=== PATIENT | female | born 1950 | race Caucasian/White ===

== ENCOUNTER → 2016-05-07 | Outpatient (CLI) | payer MEDICARE ==
--- NOTE | 2016-05-08 07:23 | BD ---
EXAMINATION TYPE: MG DEXA axial skeleton. DATE OF EXAM: 05/07/2016 3:18 PM COMPARISON: NONE CLINICAL HISTORY: Postmenopausal female, osteoporosis Z13.820 Height: 66 Weight: 266.3 FRAX RISK QUESTIONS: Alcohol (3 or more units per day): NO Family History (Parent hip fracture): NO Glucocorticoids (More than 3mos): NO (Ex: prednisone, prednisolone, methylprednisolone, dexamethasone, and hydrocortisone). History of Fracture in Adulthood: YES Secondary Osteoporosis: 1. Type 1 Diabetes: NO 2. Hyperthyroidism: NO 3. Menopause before 45: NO 4. Malnutrition: NO 5. Chronic liver disease: NO Rheumatoid Arthritis: NO Current Tobacco Use: NO RISK FACTORS HISTORY OF: Hip Fracture (Right/Left): NO Spine Fracture: NO History of Wrist Fracture: YES When: Surgery to Spine/Hip(right/left)/Wrist (right/left): NO Family History of Osteoporosis: YES Active: NO Diet low in dairy products/other sources of calcium: NO Postmenopausal woman: AROUND AGE49 Lost more than 2 inches in height since high school: NO Frequent falls: NO Adrenal Insufficiency: NO MEDICATIONS: BLOOD PRESSURE Additional History: 18 BROKEN BONES/ LEFT LEG X2 EXAM MEASUREMENTS: Bone mineral densitometry was performed using the Via System. Bone mineral density as measured about the Lumbar spine is: ----- L1-L4(G/cm2): 1.226 T Score Values are as follows: ----- L2: 0.0 ----- L3: -0.2 ----- L4: 0.7 ----- L1-L4: 0.4 Bone mineral density BASELINE Bone mineral density about the R hip (g/cm2): 0.920 Bone mineral density about the L hip (g/cm2): 0.858 T Score values are as follows: -----R Neck: -0.9 -----L Neck: -1.3 -----R Intertrochanter: 0.5 -----L Intertrochanter: 1.2 Bone mineral density BASELINE IMPRESSION: Normal bone density in the lumbar spine, osteopenia left hip NOTE: T-SCORE=SD OF THE YOUNG ADULT MEAN.
--- NOTE | 2016-05-15 14:21 | MM ---
Reason for exam: screening (asymptomatic). Last mammogram was performed 2 years and 6 months ago. History: Family history of breast cancer in mother at age 60. Physical Findings: A clinical breast exam by your physician is recommended on an annual basis and results should be correlated with mammographic findings. MG 3D Screening Mammo W/Cad Bilateral CC and MLO view(s) were taken. Prior study comparison: November 18, 2013, mammogram, performed at [facility]. There are scattered fibroglandular densities. Finding: There are typically benign round calcifications in both breasts. There is no discrete abnormality. ASSESSMENT: Benign, BI-RAD 2 RECOMMENDATION: Routine screening mammogram of both breasts in 1 year.
== END | disposition home or self-care (01) ==
LOC: RADMAMWWP 14:20
PROVIDERS: ATTEND Family Medicine
DX: Z12.31 Encounter for screening mammogram for malignant neoplasm of breast (principal); Z13.820 Encounter for screening for osteoporosis; N39.0 Urinary tract infection, site not specified; M85.852 Other specified disorders of bone density and structure, left thigh
CPT/HCPCS: 77080; 77063; G0202

== ENCOUNTER → 2017-03-11 | Outpatient (CLI) | payer MEDICARE, OTHER ==
[2017-03-11 09:16] VITALS: BMI 42.3
== END | disposition home or self-care (01) ==
LOC: MNTWWP 07:52
PROVIDERS: ATTEND Orthopaedic Surgery
DX: M17.11 Unilateral primary osteoarthritis, right knee (principal); M25.561 Pain in right knee; M22.2X1 Patellofemoral disorders, right knee; E66.8 Other obesity; E66.01 Morbid (severe) obesity due to excess calories
CPT/HCPCS: 97802

== ENCOUNTER → 2018-03-06 | Outpatient (CLI) | payer MEDICARE, OTHER ==
[2018-03-06 10:26] LABS: Appearance,Urine Clear (Clear); Bilirubin,Urine Negative (Negative); Blood,Urine Negative (Negative); Color,Urine Light Yellow; Glucose,Urine (UA) Negative (Negative); Ketones,Urine Negative (Negative); Leukocyte Esterase,Urine Negative (Negative); Nitrite,Urine Negative (Negative); PH, Urine 6.5 (5.0-8.0); Protein,Urine Negative (Negative); Specific Gravity,Urine 1.012 (1.001-1.035); Urobilinogen,Urine <2.0 mg/dL (<2.0)
[2018-03-06 10:27] LABS: HGB 12.5 gm/dL (11.4-16.0); MCH 29.7 pg (25.0-35.0); MCHC 33.8 g/dL (31.0-37.0); MCV 87.9 fL (80.0-100.0); Mean Platelet Volume 10.2; Platelet Count 239 k/uL (150-450); RBC 4.21 m/uL (3.80-5.40); WBC 8.1 k/uL (3.8-10.6)
[2018-03-06 10:35] LABS: Partial Thromboplastin Time 25.2 sec (22.0-30.0); Prothrombin Time 9.7 sec (9.0-12.0)
[2018-03-06 10:39] LABS: Albumin 4.4 g/dL (3.5-5.0); Calcium 10.2 mg/dL (8.4-10.2); Potassium 5.1 mmol/L (3.5-5.1); Total Bilirubin 0.4 mg/dL (0.2-1.3); Total Protein 7.4 g/dL (6.3-8.2)
== END ==
LOC: LABPAT 09:30
PROVIDERS: ATTEND Orthopaedic Surgery
DX: Z01.812 Encounter for preprocedural laboratory examination (principal); Z51.81 Encounter for therapeutic drug level monitoring; Z79.01 Long term (current) use of anticoagulants
CPT/HCPCS: 36415; 80053; 81003; 85027; 85610; 85730; 87070

== ENCOUNTER 2018-03-23 08:56 | Inpatient (IN) | payer MEDICARE, OTHER ==
[~2018-03-23 08:56] MED LIST: ACETAMINOPHEN TAB 500 MG TAB PO ONE; CLINDAMYCIN 900 MG in DEXTROSE 5% IN WATER 50 ML IVPB ONE; DEXAMETHASONE SOD PHOSPHATE 10 MG/ML 1 ML VIAL IV ONE; LIDOCAINE 1% 20 ML VIAL (10MG/ML) FOR IV START INTRADERMA PRN; ONDANSETRON 4 MG/2 ML VIAL IVP ONE; ROPIVACAINE 246.25 MG, EPINEPHrine 0.5 MG, KETOROLAC 30 MG, cloNIDine HCL/PF 80 MCG, WA... MISCELLANE ONE; SCOPOLAMINE 1.5MG/72HR PATCH TRANSDERM ONE; TRANEXAMIC ACID 1,000 MG in SODIUM CHLORIDE 0.9% 50 ML IVPB ONE
[2018-03-23 09:27] VITALS: RESP 16
[2018-03-23] MEDS: LACTATED RINGERS 1,000 ML IV SCH (09:43)
[2018-03-23] MEDS ORDERED: BUPIVACAINE (PF) 0.5% 30 ML VIAL ONE (10:37)
[2018-03-23] MEDS ORDERED: LIDOCAINE 1% INJ 10MG/ML (20 ML MDV) ONE (10:37)
[2018-03-23] MEDS ORDERED: MIDAZOLAM 2 MG/2 ML VIAL ONE (10:37)
[2018-03-23] MEDS ORDERED: PROPOFOL 10 MG/ML 20 ML VIAL IV ONE (10:37)
[2018-03-23] MEDS ORDERED: ePHEDrine SULFATE/0.9% NACL/PF 50 MG/5 ML SYRINGE IV ONE (10:37)
[2018-03-23] MEDS ORDERED: SODIUM CHLORIDE 0.9% 100 ML BAG ONE (10:37)
[2018-03-23] MEDS ORDERED: TRANEXAMIC ACID 1,000 MG/10 ML VIAL ONE (10:37)
[2018-03-23] MEDS ORDERED: fentaNYL (PF) 50 MCG/ML 2 ML AMP ONE (10:37)
[2018-03-23] MEDS ORDERED: DEXTROSE 5% IN WATER 250 ML BAG IV ONE (10:37)
[2018-03-23] MEDS ORDERED: PHENYLEPHRINE-0.9% NACL SYG 1 MG/10 ML SYRINGE ONE (10:37)
[2018-03-23] MEDS ORDERED: CLINDAMYCIN 1,800 MG in SODIUM CHLORIDE 0.9% IRRIGATIO 3,000 ML IRRIGATION ONE (10:45)
[2018-03-23] MEDS ORDERED: NA PHOS,M-B/NA PHOS,DI-BA 133 ML ENEMA RECTAL PRN (12:59)
[2018-03-23] MEDS ORDERED: NALOXONE 0.4 MG/ML 1 ML VIAL IV PRN (12:59)
[2018-03-23] MEDS ORDERED: HYDROmorphone 1 MG/ML 1 ML SYRINGE IVP PRN ×3 (12:59)
[2018-03-23] MEDS ORDERED: BISACODYL 10 MG SUPP RECTAL PRN (12:59)
[2018-03-23] MEDS ORDERED: MAGNESIUM HYDROXIDE 2,400 MG/10 ML CUP PO PRN (12:59)
[2018-03-23] MEDS ORDERED: ONDANSETRON 4 MG/2 ML VIAL IVP PRN (12:59)
[2018-03-23] MEDS ORDERED: hydrOXYzine PAMOATE 25 MG CAP PO PRN (12:59)
[2018-03-23] MEDS ORDERED: HYDROcodone/APAP 5-325MG 1 EACH TAB PO PRN (12:59)
[2018-03-23] MEDS: HYDROmorphone 0.5 MG/0.5 ML SYRINGE IVP PRN ×4 (13:24→15:00)
--- NOTE | 2018-03-23 13:51 | XR ---
EXAMINATION TYPE: XR knee limited RT DATE OF EXAM: 03/23/2018 CLINICAL HISTORY: Right knee pain and arthritis status post total knee replacement. TECHNIQUE: Portable AP and crosstable lateral views of the right knee are obtained immediately posto peratively. COMPARISON: None FINDINGS: Metallic hardware from total right knee arthroplasty is seen and appears satisfactory in a lignment and position. There is evidence of recent surgery with diffuse subcutaneous gas and soft ti ssue swelling noted. IMPRESSION: METALLIC HARDWARE FROM TOTAL RIGHT KNEE ARTHROPLASTY IS SATISFACTORY IN ALIGNMENT.
--- NOTE | 2018-03-23 17:29 | P.OP ---
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 ANESTHESIA: Spinal ESTIMATED BLOOD LOSS: 25 ml. COMPUTER MECHANIC: Sandy Rolon PA-C (assistance with: patient positioning, retraction, exposure, hemostasis, leg positioning, implantation, irrigation, closure, dressing) COMPLICATIONS: None apparent. COMPONENTS IMPLANTED: Persona system from [employer] INDICATIONS: Allyson is a 67-year-old female with a history of right knee osteoarthritis and moderate genu valgum. The operation of knee replacement has been discussed at length in the office, as well as potential risks and complications. These are inclusive of, but not limited to: bleeding, infection , scarring, discomfort, blood vessel and nerve damage, need for further surgery , failure to relieve symptoms, persistence, recurrence, or worsening of problems , loosening, dislocation, wear, blood clot, pulmonary embolism, , gait dysfunction, stiffness, and other risks as discussed in the office. The patient elects to proceed and the consent form has been signed. PROCEDURE: The patient was taken to the operating room and positioned on the operating room table in the supine position. Anesthesia was initiated. Care was taken to make sure that all pressure points were adequately padded. The operative lower extremity was prepped and draped in the usual aseptic fashion using ChloraPrep. Ioban drape was used for the case and the patient received intravenous antibiotics within one hour of the incision. A pneumotourniquet and leg ahn were used for the case. The limb was exsanguinated with an Esmarch bandage and the tourniquet was inflated to 350 mmHg. Time-out was called confirming the patients identity, side, procedure and administration of antibiotics. The incision was then created midline directly over the knee, carried down through skin and into the subcutaneous tissues and down to fascia. Full thickness subcutaneous medial flap was developed. Medial parapatellar arthrotomy was performed and the interior of the knee was inspected. There was end-stage osteoarthritis of the knee with a mild to moderate genu valgum type deformity. Also noted was moderate osteoporosis , as evidenced by diminished cortical bone density as well as moderate softening of the cancellus bone, discovered during the course of the operation. The fat pad was excised and limited proximal medial release on the tibia was completed using meticulous dissection. The anterior cruciate ligament was taken down. The exposure was excellent. The knee was flexed 90 degrees and the patella was everted. A spot was chosen on the femur approximately 1 cm anterior to the posterior cruciate ligament insertion and an intramedullary hole was created within the femur. The intramedullary guide was then set to 5 degrees of valgus. The distal cutting block was attached and pinned into position. An appropriate amount of distal femoral resection was set. The oscillating saw was then used to make the distal femoral cut. This cut was confirmed to be flat with the flat end of an osteotome. The retractors were placed around the tibia and the tibial surface was addressed. The angle and depth of resection was adjusted using an extramedullary cutting guide. The guide had a built-in 3 degree posterior slope cut. Once the cutting guide was adjusted appropriately and in line with the axis of the tibia and confirmed to be in good position in relation to the second metatarsal and transmalleolar axis, the tibial cut was then created with protection of the posterior neurovascular structures and the collateral ligaments. The tibial cut surface was removed and sized. Femoral sizing was then accomplished using anterior referencing. Care was taken to analyze the posterior condyles for signs of deficiency or severe wear, and adjustments to the guide were made, as appropriate. Moderate to severe posterior spurring was noted, as well as a moderately to severely tight posterior cruciate ligament which therefore was released, see below. 3 degree external rotation pins were placed. The cutting jig for the femur was applied to these pins. The planned cuts were further analyzed prior to performing them with the oscillating saw. No femoral notching was produced. Bone fragments were removed and the cut surfaces were finished, as necessary, with a reciprocating saw. Spacer block technique was then used to confirm that the flexion and extension gaps were equal. Soft tissue releases and adjustment of the tibial and/or femoral cuts were made, as necessary, until the gaps were equal. This included release of the posterior cruciate ligament, which was tight in this patient and , if left unreleased, would have resulted in poor kinematics and possibly early loosening. The femur was then further finished for a posterior cruciate ligament substituting component. Patellar resurfacing was performed using a reamer. The size of the required patellar component was estimated and the patellar surface was then reamed down to a residual thickness which would recreate the mohegan thickness with the component. The exact placement of the patellar component was adjusted for position based on preoperative x-rays and intraoperative findings. Prior to placing trial components, anesthetic solution consisting of ropivicaine with epinephrine, ketorolac, and clonidine was injected carefully and methodically in a grid pattern using aspiration technique into the soft tissue around the knee circumferentially, starting with the deeper tissues first and progressing to fascia, and then finally the skin/subcutaneous tissue. Particular care was taken when injecting the posterior capsule. The trial components were inserted. The tibial tray was allowed to self center and the patella was noted to track very well. The position of the tibial component was marked and the tibia was then finished for a stemmed tibial component. Cement was mixed on the back table and applied to the final components. Trial components were removed and the cut surfaces of the bone were pulse lavaged thoroughly and dried. Cement was then applied to the tibial surface and pressurized into the surface using finger pressurization technique. The tibial component was then applied and excess cement was removed after it was impacted securely and noted to be flush with the cut surface. In similar fashion, the cement was applied to the cut femoral surface, pressurized in using finger pressurization and the component was impacted into place. Excess cement was removed. The polyethylene spacer was then implanted and locked into position. The patellar component was then applied in similar technique and a patellar clamp was used to hold the patella in place as the cement hardened. Once the cement had fully hardened, the knee was reinspected. Any other cement extrusion was removed and final kinematic testing showed range of motion from 0 to 130 degrees with excellent stability, both medially and laterally and appropriate alignment of the leg. Patellar tracking was excellent. The knee was then thoroughly pulse lavaged with normal saline. The tourniquet was deflated and hemostasis was obtained with electrocautery and IV tranexamic acid, 1 g given at the start of the operation and 1 g at the start of closure. Closure was with #2 Ethibond in the fascia and supplemented with #2 Quill, 2-0 Vicryl suture was used for the subcutaneous tissues and 3-0 Quill for the skin. Dermabond/Steri-Strips were then applied. A lightly compressive dressing was applied using Webril and an Librado wrap. The patient was then transferred to stretcher and taken to the recovery room in stable condition. Sponge and needle counts were correct.
[2018-03-23 19:05] VITALS: BMI 39.7
[2018-03-23] MEDS: CLINDAMYCIN 900 MG in DEXTROSE 5% IN WATER 50 ML IVPB SCH ×4 (20:27→23:34)
[2018-03-23] MEDS ORDERED: SENNOSIDES-DOCUSATE SODIUM 1 EACH TAB PO SCH (21:00)
[2018-03-23] MEDS: HYDROcodone/APAP 5-325MG 1 EACH TAB PO PRN (23:38)
[2018-03-24] MEDS: LACTATED RINGERS 1,000 ML IV SCH (05:38)
[2018-03-24 07:26] LABS: Basophils % (A) 0 %; Eosinophils # (A) 0.1 k/uL (0-0.7); Eosinophils % (A) 1 %; HCT 29.8 % (34.0-46.0); HGB 10.1 gm/dL (11.4-16.0); Lymphocytes # (A) 1.5 k/uL (1.0-4.8); Lymphocytes % (A) 14 %; MCH 30.2 pg (25.0-35.0); MCHC 34.1 g/dL (31.0-37.0); MCV 88.6 fL (80.0-100.0); Mean Platelet Volume 10.4; Monocytes # (A) 0.8 k/uL (0-1.0); Monocytes % (A) 7 %; Neutrophils # (A) 8.7 k/uL (1.3-7.7); Neutrophils % (A) 76 %; Platelet Count 200 k/uL (150-450); RBC 3.36 m/uL (3.80-5.40); RDW 13.1 % (11.5-15.5); WBC 11.4 k/uL (3.8-10.6)
[2018-03-24] MEDS: HYDROcodone/APAP 5-325MG 1 EACH TAB PO PRN ×2 (07:36→12:55)
--- NOTE | 2018-03-24 08:21 | P.DS ---
Providers Date of admission: 03/23/18 08:56 Expected date of discharge: 03/24/18 Attending physician: Pineda Ramirez Consults: 03/23/18 12:59 Consult Physician Routine Consulting Provider: Lotus Milan Consult Reason/Comments: Medical management Do you want consulting provider notified?: Yes 03/23/18 16:57 Consult Physician Routine Consulting Provider: Leighton Ferguson Consult Reason/Comments: medical management Do you want consulting provider notified?: Yes Primary care physician: Lotus Milan - Discharge Diagnosis(es) (1) Osteoarthritis of right knee Current Visit: Yes Status: Acute (2) Status post total right knee replacement Current Visit: Yes Status: Acute Hospital Course: This is a 67-year-old female who was last seen with complaint of continued right knee pain. The patient has a known history of degenerative arthritis of the right knee and presents to discuss surgical options. After discussion and consideration the patient elects to proceed with total right knee arthroplasty. The patient is seen preoperatively by Dr. Milan and cleared for surgery. The patient is admitted to [facility] for total right knee arthroplasty. The procedures performed without complication or sequelae. Patient is doing well postoperatively. Vital signs are stable at discharge. Labs are stable at discharge. the patient is ambulating well with walker with minimal assistance. The patient is discharged to home on postop day #1 pending medical clearance. Please see orders and refer to the [facility] rec for accurate list of medications. Patient Condition at Discharge: Good Plan - Discharge Summary Discharge Rx Participant: Yes New Discharge Prescriptions: New Aspirin [Adult Low Dose Aspirin EC] 81 mg PO DAILY #1 tablet. HYDROcodone/APAP 5-325MG [Molt 5-325] 1 - 2 each PO Q4-6H PRN #50 tab PRN Reason: Pain Rivaroxaban [Xarelto] 10 mg PO DAILY #5 tab Sennosides-Docusate Sodium [Senokot-S] 1 tab PO BID #60 tablet No Action Atenolol [Tenormin] 25 mg PO QAM Losartan/Hydrochlorothiazide [Hyzaar 100-25 Tablet] 1 tab PO QAM Discharge Medication List Atenolol [Tenormin] 25 mg PO QAM 03/18/18 [History] Losartan/Hydrochlorothiazide [Hyzaar 100-25 Tablet] 1 tab PO QAM 03/18/18 [ History] Aspirin [Adult Low Dose Aspirin EC] 81 mg PO DAILY #1 tablet. 03/23/18 [Rx] HYDROcodone/APAP 5-325MG [Molt 5-325] 1 - 2 each PO Q4-6H PRN #50 tab 03/23/18 [Rx] Rivaroxaban [Xarelto] 10 mg PO DAILY #5 tab 03/23/18 [Rx] Sennosides-Docusate Sodium [Senokot-S] 1 tab PO BID #60 tablet 03/23/18 [Rx] Follow up Appointment(s)/Referral(s): Sandy Rolon, DIANE [PHYSICIAN PUNCHING MACHINE OPERATOR] - 2 Weeks Activity/Diet/Wound Care/Special Instructions: May bear wt as tolerated with walker. May shower if no drainage. Discharge Disposition: HOME WITH HOME HEALTH SERVICES
[2018-03-24] MEDS ORDERED: MELOXICAM 7.5 MG TAB PO SCH (09:00)
[2018-03-24] MEDS ORDERED: RIVAROXABAN 10 MG TAB PO SCH (09:00)
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
[2018-03-24 13:16] LABS: Calcium 8.8 mg/dL (8.4-10.2); Potassium 4.4 mmol/L (3.5-5.1)
[2018-03-24 16:00] VITALS: BP 126/54; PULSE 62; TEMP 98.5
== END 2018-03-24 16:47 | disposition home health service (06) | DRG 470 ==
LOC: 2ORMAIN 08:56 → 4SSUR 16:42
PROVIDERS: ADMIT Orthopaedic Surgery; ATTEND Orthopaedic Surgery
PROC: 0SRC0J9 Replacement of Right Knee Joint with Synthetic Substitute, Cemented, Open Approach (ICD-10-PCS; principal; 2018-03-23 10:45)
DX: M17.0 Bilateral primary osteoarthritis of knee (principal); D62 Acute posthemorrhagic anemia; M21.061 Valgus deformity, not elsewhere classified, right knee; I10 Essential (primary) hypertension; E78.5 Hyperlipidemia, unspecified; L82.0 Inflamed seborrheic keratosis; D72.829 Elevated white blood cell count, unspecified; M81.0 Age-related osteoporosis without current pathological fracture; E66.9 Obesity, unspecified; Z68.39 Body mass index [BMI] 39.0-39.9, adult; Z79.899 Other long term (current) drug therapy; Z87.891 Personal history of nicotine dependence; Z87.81 Personal history of (healed) traumatic fracture; Z90.710 Acquired absence of both cervix and uterus; Z88.1 Allergy status to other antibiotic agents; Z82.49 Family history of ischemic heart disease and other diseases of the circulatory system; Z80.3 Family history of malignant neoplasm of breast; Z83.49 Family history of other endocrine, nutritional and metabolic diseases; Z82.5 Family history of asthma and other chronic lower respiratory diseases; Z80.9 Family history of malignant neoplasm, unspecified; Z80.6 Family history of leukemia
CPT/HCPCS: 80048; 85025; 88300

== ENCOUNTER → 2019-01-08 | Outpatient (CLI) | payer MEDICARE, OTHER ==
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
--- NOTE | 2019-01-12 11:21 | MM ---
Reason for exam: screening (asymptomatic). Last mammogram was performed 2 years and 8 months ago. History: Patient is postmenopausal. Family history of breast cancer in mother at age 60. Physical Findings: A clinical breast exam by your physician is recommended on an annual basis and results should be correlated with mammographic findings. MG 3D Screening Mammo W/Cad Bilateral CC and MLO view(s) were taken. Prior study comparison: May 07, 2016, bilateral MG 3d screening mammo w/cad. November 18, 2013, mammogram, performed at [facility]. There are scattered fibroglandular densities. There are benign appearing round linear calcifications bilaterally. Asymmetric breast tissue left subareolar breast is stable. There is no discrete abnormality. ASSESSMENT: Benign, BI-RAD 2 RECOMMENDATION: Routine screening mammogram of both breasts in 1 year.
== END ==
LOC: RADMAMWWP 10:45
PROVIDERS: ATTEND Family Medicine
DX: Z12.31 Encounter for screening mammogram for malignant neoplasm of breast (principal); M85.80 Other specified disorders of bone density and structure, unspecified site
CPT/HCPCS: 77063; 77067; 77080

== ENCOUNTER → 2019-06-08 | Outpatient (CLI) | payer MEDICARE, OTHER ==
--- NOTE | 2019-06-08 15:38 | XR ---
EXAMINATION TYPE: XR chest 2V DATE OF EXAM: 06/08/2019 COMPARISON: NONE HISTORY: Cough TECHNIQUE: Frontal and lateral views of the chest are obtained. FINDINGS: There are prominent lung volumes. Bronchial wall thickening is present. There is no eviden t airspace disease, pneumothorax, or pleural effusion. Patient is rotated. Cardiac mediastinal silhou ette, pulmonary vascularity and josh are within normal limits. Rib deformity present at the posterior right third rib, possible excrescence or prior trauma. Question some irregularity the anterior first rib on the right knee is overlap the right clavicle. IMPRESSION: Correlate for COPD, bronchitis, active airways disease follow-up as indicated. Additional findings above, CT could be performed for additional evaluation.
== END | disposition home or self-care (01) ==
LOC: RADXRMAIN 13:55
PROVIDERS: ATTEND Family Medicine
DX: R05 Cough (principal)
CPT/HCPCS: 71046

== ENCOUNTER → 2019-06-17 | Outpatient (CLI) | payer MEDICARE, OTHER ==
--- NOTE | 2019-06-17 16:54 | CT ---
EXAMINATION TYPE: CT chest w con DATE OF EXAM: 06/17/2019 COMPARISON: 06/08/2019 HISTORY: Abnormal xray, hx collapsed lung CT DLP: 526.80 mGycm, Automated exposure control for dose reduction was used. CONTRAST: Performed injected with 100 mL of Isovue 300. TECHNIQUE: Axial images were obtained at 5 mm thick sections. Reconstructed images are reviewed on [employer] computer in the coronal plane. FINDINGS: Portion of the thyroid visualized is normal. No suspicious lung nodules or focal infiltrates are present. Suspicious peribronchial thickening is n ot evident on the CT exam. No pneumothorax is evident. No enlarged mediastinal or hilar adenopathy is evident. The ascending aorta diameter at the level o f the main pulmonary artery is 3.6 cm. The main pulmonary artery diameter at the bifurcation is 2.6 cm. No acute osseous abnormality is evident. Limited CT sections are obtained through the upper abdomen. Abdomen is essentially unremarkable. IMPRESSIONS: 1. No acute abnormality.
== END | disposition home or self-care (01) ==
LOC: RADCTMAIN 13:41
PROVIDERS: ATTEND Family Medicine
DX: R93.89 Abnormal findings on diagnostic imaging of other specified body structures (principal)
CPT/HCPCS: 82565; 84520; 71260; 36415; Q9967

== ENCOUNTER → 2021-08-29 | Outpatient (CLI) | payer MEDICARE | END | disposition home or self-care (01) | LOC: LABWHC1 09:25 | PROVIDERS: ATTEND Family Medicine | DX: Z01.810 Encounter for preprocedural cardiovascular examination (principal); R94.31 Abnormal electrocardiogram [ECG] [EKG] | CPT/HCPCS: 36415; 93005 ==

== ENCOUNTER 2021-09-07 09:28 | Day surgery (SDC) | payer MEDICARE, OTHER ==
[2021-09-06 09:10] VITALS: BMI 42.1
[~2021-09-07 09:28] MED LIST changes: -ACETAMINOPHEN TAB 500 MG TAB PO ONE; -CLINDAMYCIN 900 MG in DEXTROSE 5% IN WATER 50 ML IVPB ONE; -DEXAMETHASONE SOD PHOSPHATE 10 MG/ML 1 ML VIAL IV ONE; +HYDROmorphone 0.5 MG/0.5 ML SYRINGE IVP PRN; +LACTATED RINGERS 1,000 ML IV SCH; +LIDOCAINE 1% (10MG/ML) FOR IV START INTRADERMA PRN; -LIDOCAINE 1% 20 ML VIAL (10MG/ML) FOR IV START INTRADERMA PRN; -ROPIVACAINE 246.25 MG, EPINEPHrine 0.5 MG, KETOROLAC 30 MG, cloNIDine HCL/PF 80 MCG, WA... MISCELLANE ONE; -SCOPOLAMINE 1.5MG/72HR PATCH TRANSDERM ONE; -TRANEXAMIC ACID 1,000 MG in SODIUM CHLORIDE 0.9% 50 ML IVPB ONE; +ceFAZolin 3 GM in SODIUM CHLORIDE 0.9% 100 ML IVPB PRN
[2021-09-07 09:54] LABS: Glucose,Whole Blood 86 mg/dL (75-99)
[2021-09-07] MEDS ORDERED: ePHEDrine 50 MG/ML 1 ML VIAL ONE (11:00)
[2021-09-07] MEDS ORDERED: PROPOFOL 10 MG/ML 20 ML VIAL IV ONE (11:00)
[2021-09-07] MEDS ORDERED: MIDAZOLAM 2 MG/2 ML VIAL ONE (11:00)
[2021-09-07] MEDS ORDERED: KETOROLAC 15 MG/ML 1 ML VIAL ONE (11:00)
[2021-09-07] MEDS ORDERED: LIDOCAINE 2% INJ 20 MG/ML (2 ML VIAL) ONE (11:00)
[2021-09-07] MEDS ORDERED: SUCCINYLCHOLINE CHLORIDE VIAL 200 MG/10 ML VIAL IV ONE (11:00)
[2021-09-07] MEDS ORDERED: HYDROmorphone (PF) 1 MG/ML ONE (11:00)
[2021-09-07] MEDS ORDERED: fentaNYL (PF) 50 MCG/ML 2 ML AMP ONE (11:00)
--- NOTE | 2021-09-07 12:02 | FL ---
EXAMINATION TYPE: FL guidance operating room DATE OF EXAM: 09/07/2021 HISTORY: Fluoroscopy time 9 seconds of fluoroscopy provided. IMPRESSION: 1. Fluoroscopy time.
--- NOTE | 2021-09-07 12:03 | XR ---
EXAMINATION TYPE: XR knee limited LT DATE OF EXAM: 09/07/2021 COMPARISON: NONE TECHNIQUE: Two views submitted HISTORY: Post op FINDINGS: There is intraoperative hardware removal. Osteoarthritic changes noted. Residual postsurgical changes noted.. IMPRESSION: 1. Postoperative change.
--- NOTE | 2021-09-07 12:29 | P.OP ---
Date of Procedure: 09/07/21 Preoperative Diagnosis: 1. Symptomatic hardware, left knee 2. Posttraumatic arthritis, left knee Postoperative Diagnosis: Same Procedure(s) Performed: Hardware removal deep, left knee Anesthesia: UYEN Surgeon: Rodrigo Cedillo Pulling Unit Operator #1: Radha Pressley Estimated Blood Loss (ml): 20 IV fluids (ml): 1,200 Pathology: none sent Condition: stable Disposition: PACU Indications for Procedure: The patient is a very pleasant. Is healthy 70-year-old female who previously underwent a left proximal tibia fracture ORIF by another surgeon. She went on to heal her fracture but developed posterior medical arthritis in both her knee and ankle as well as symptom attic hardware. She is initially managed nonsurgically but then developed pain along the proximal aspect of her tibia. She treated some of her pain to the hardware. She also has knee arthritis and understands that this is also likely contributing to her pain. She requested hardware removal understanding that she may still have symptoms from her knee and ankle arthritis. We discussed potential risks and Locations of hardware removal including but certainly not limited to risks from anesthesia, superficial infection, deep infection, delayed wound healing, damage to local blood vessels or nerves, continued or worsened pain, fracture, DVT, PE, other medical complications, need for further surgery, dissatisfaction with her surgical outcome, and possibly loss of life or limb. The patient voiced understanding of these potential complications and also acknowledges that other less common complications are possible. She provided her verbal and written consent to go forward with surgery. Description of Procedure: The patient was identified in preoperative holding and the correct left leg was marked my initials. I reviewed the consent form with the patient and all of her questions were answered. She was brought back to the operating room by anesthesia and was given a general anesthetic and preoperative antibiotics on the [facility]. A tourniquet was applied the proximal aspect of the left leg. A bump was placed under the left buttock and a ramp was placed on the left leg to facilitate imaging. The left leg was then prepped and draped in the standard sterile fashion. Prior to starting surgery timeout was performed identifying the correct patient, operative extremity, and procedure. The patient's leg was then elevated, exsanguinated with an Esmarch bandage, and the tourniquet was inflated to 250 mmHg. I began by outlining her prior scars over the posterior medial and lateral tibia. I started medially. A skin incision was made with a scalpel directly over her scar and dissection was carried down through the subcutaneous fat to the anteromedial crest of the tibia. The periosteum was sharply elevated direct ly over the plate. The screws were then sequentially removed followed by the plate. The wound was thoroughly irrigated and closed in layers. A stab incision was made over the anterolateral aspect of the tibia and the screw head was easily palpated in the subcutaneous tissue. Dissection was carried down to the screw which was identified and removed. This wound was then thoroughly irrigated and closed in layers. Sterile dressings were applied. The tourniquet was let down. I verified that all instrument, sponge, and sharp counts were correct. The patient was then awoken from her anesthetic, transferred from the OR table to a gurney, and brought to recovery having tolerated the procedure well. Radha Pressley PA-C was required as a skilled kitchen assistant for patient positioning, draping, retraction, removal of hardware, closure of wound, and application of dressing. Plan: The patient can weight-bear as tolerated on her left leg. We'll see how she does with physical therapy and pain control. If she needs to see overnight she can. If she stays overnight she'll need 2 doses of postoperative antibiotics. She'll follow-up in the office in 2 weeks for a wound check. She does not need x-rays at that time unless her pain is increased.
[2021-09-07 12:33] VITALS: TEMP 97.2
[2021-09-07 12:51] VITALS: RESP 18
[2021-09-07 13:35] VITALS: BP 134/65; PULSE 52
== END 2021-09-07 14:27 | disposition home or self-care (01) ==
LOC: OR 09:28
PROVIDERS: ATTEND Orthopaedic Surgery
DX: T84.84XA Pain due to internal orthopedic prosthetic devices, implants and grafts, initial encounter (principal); M17.32 Unilateral post-traumatic osteoarthritis, left knee; T14.90XS Injury, unspecified, sequela; I10 Essential (primary) hypertension; R26.81 Unsteadiness on feet; E11.9 Type 2 diabetes mellitus without complications; E07.9 Disorder of thyroid, unspecified; Z98.890 Other specified postprocedural states; G47.33 Obstructive sleep apnea (adult) (pediatric); Z82.49 Family history of ischemic heart disease and other diseases of the circulatory system; Z87.891 Personal history of nicotine dependence; Z96.651 Presence of right artificial knee joint; Z97.3 Presence of spectacles and contact lenses; Z90.710 Acquired absence of both cervix and uterus; Z79.1 Long term (current) use of non-steroidal anti-inflammatories (NSAID); Z79.899 Other long term (current) drug therapy; Z88.1 Allergy status to other antibiotic agents
CPT/HCPCS: 20680; 84132; 73560; J2250; J0330; J0690; J2405; J3010; J1170; J1885; J2704; J2001

== ENCOUNTER → 2022-01-02 | Outpatient (CLI) | payer MEDICARE, OTHER ==
[2022-01-02 17:35] LABS: INR 0.9 (<1.2)
[2022-01-03 00:01] LABS: African American GFR (CKD) 75.1 (60.0-200.0); Albumin 4.4 g/dL (3.8-4.9); Albumin/Globulin Ratio 1.91 (1.60-3.17); Anion Gap 12.7 mmol/L (10.00-18.00); Blood Urea Nitrogen 25.2 mg/dL (9.0-27.0); Calcium 9.9 mg/dL (8.7-10.3); Carbon Dioxide 23.3 mmol/L (20.0-27.5); Globulin 2.3 g/dL (1.6-3.3); Non-African American GFR(CKD) 64.8 (60.0-200.0); Potassium 4.7 mmol/L (3.5-5.5); Total Bilirubin 0.2 mg/dL (0.30-1.20); Total Protein 6.7 g/dL (6.2-8.2)
[2022-01-03 00:10] LABS: Eosinophils # (A) 0.28 X 10*3/uL (0.04-0.35); Eosinophils % (A) 2.8 %; HCT 38.6 % (37.2-46.3); HGB 12.7 g/dL (12.0-15.0); Immature Grans, Automated 0.4 %; Lymphocytes # (A) 2.35 X 10*3/uL (0.90-5.00); Lymphocytes % (A) 23.3 %; MCH 29.4 pg (27.0-32.0); MCHC 32.9 g/dL (32.0-37.0); MCV 89.4 fL (80.0-97.0); Monocytes # (A) 0.96 X 10*3/uL (0.20-1.00); Monocytes % (A) 9.5 %; NRBC Per 100 WBC 0 /100 WBCS (0.0-0.0); Neutrophils # (A) 6.37 X 10*3/uL (1.80-7.70); Platelet Count 258 X 10*3/uL (140-440); RBC 4.32 X 10*6/uL (4.10-5.20); RDW 13.2 % (11.5-14.5)
== END | disposition home or self-care (01) ==
LOC: LABWHC1 15:32
PROVIDERS: ATTEND Family Medicine
DX: Z01.810 Encounter for preprocedural cardiovascular examination (principal)
CPT/HCPCS: 36415; 80053; 85025; 85610; 85730

== ENCOUNTER → 2024-07-02 | Outpatient (CLI) | payer MEDICARE ==
--- NOTE | 2024-07-02 12:41 | XR ---
EXAMINATION TYPE: XR chest 2V DATE OF EXAM: 07/02/2024 12:34 PM COMPARISON: Chest CT June 17, 2019 CLINICAL INDICATION: Female, 73 years old with history of R05.9 Cough, TECHNIQUE: Frontal and lateral views of the chest are obtained. FINDINGS: There is no focal air space opacity, pleural effusion, or pneumothorax seen. Cardiomegaly is redemonstrated. Suspect mild central vascular congestion. The osseous structures are intact. IMPRESSION: Cardiomegaly with perhaps mild central vascular congestion. Correlate for CHF exacerbatio n. [facility], , 07/02/2024 12:39 PM
== END | disposition home or self-care (01) ==
LOC: RADXRMAIN 12:20
PROVIDERS: ATTEND Family Medicine
DX: R05.9 Cough, unspecified (principal); I51.7 Cardiomegaly
CPT/HCPCS: 71046

== ENCOUNTER 2024-07-05 05:58 | Day surgery (SDC) | payer MEDICARE ==
[~2024-07-05 05:58] MED LIST changes: +BENZOCAINE SPRAY 1 CAN TOPICAL PRN; -HYDROmorphone 0.5 MG/0.5 ML SYRINGE IVP PRN; -LACTATED RINGERS 1,000 ML IV SCH; -LIDOCAINE 1% (10MG/ML) FOR IV START INTRADERMA PRN; -ONDANSETRON 4 MG/2 ML VIAL IVP ONE; -ceFAZolin 3 GM in SODIUM CHLORIDE 0.9% 100 ML IVPB PRN
[2024-07-05] MEDS: SODIUM CHLORIDE 0.9% 500 ML 500 ML IV ONE (06:22)
[2024-07-05 06:42] VITALS: TEMP 96.8
[2024-07-05 06:51] LABS: Glucose,Whole Blood 101 mg/dL (70-110)
[2024-07-05] MEDS: SODIUM CHLORIDE 0.9% 500 ML 500 ML IV SCH (06:51)
[2024-07-05] MEDS ORDERED: LIDOCAINE 1% INJ 10MG/ML (20 ML MDV) ONE (07:15)
[2024-07-05] MEDS ORDERED: PROPOFOL 10 MG/ML 20 ML VIAL IV ONE (07:15)
[2024-07-05] MEDS: BENZOCAINE SPRAY 1 EACH MM ONE (07:21)
--- NOTE | 2024-07-05 07:33 | P.TEE ---
Description of Procedure(s): Procedure performed: Transesophageal Echocardiogram with color flow doppler, pulsed wave doppler and continuous wave doppler, synchronized cardioversion Moderate conscious sedation: Moderate conscious sedation was supplied by anesthesia, see separate report. Complications: none Indications: Afib PROCEDURE: After the risks, benefits and alternatives of the above mentioned procedure was explained in detail with the patient, informed consent was obtained. Patient was brought to the lab in a fasting state. Patient was given sedation by anesthesia, see separate report. The throat was sprayed with Hurricane to anesthetize the throat. A lubricated Omni probe was then introduced into the esophagus and stomach and multiple views were obtained. 2D echo with color flow doppler, pulsed wave doppler and continuous wave doppler was utilized. Agitated saline bubbles were injected to assess for any intra- atrial shunt. The probe was then removed. There was no thrombus noted and therefore patient underwent synchronized cardioversion x 1 with 200J with resultant sinus rhythm. Patient tolerated the procedure well. Patient was transferred to the post procedure area in stable and satisfactory condition. FINDINGS: 1. The aortic valve is tricuspid and function normally. 2. The mitral valve appears be normal with moderate to severe mitral regurgitation. No pulmonary vein systolic reversal and PISA radius 0.6cm at Nyquist 44 more consistent with moderate mitral regurgitation 3. Tricuspid valve appears to be normal with moderate to severe tricuspid regurgitation. 4. The interatrial septum is intact. No evidence of PFO. 5. Left atrial appendage is free of clot. 6. Left ventricular EF 55%
[2024-07-05] MEDS: IV FLUID CONTINUATION 1,000 ML IV ONE (08:13)
[2024-07-05 08:55] VITALS: BP 116/79; PULSE 64; RESP 16
== END 2024-07-05 09:13 | disposition home or self-care (01) ==
LOC: OR 05:58
PROVIDERS: ATTEND Internal Medicine
DX: I48.0 Paroxysmal atrial fibrillation (principal); I34.0 Nonrheumatic mitral (valve) insufficiency; I07.1 Rheumatic tricuspid insufficiency
CPT/HCPCS: 93312; 93320; 93325; 92960; J2003; J2704

== ENCOUNTER 2024-07-26 05:34 | Day surgery (SDC) | payer MEDICARE ==
[2024-07-26] MEDS ORDERED: LACTATED RINGERS 1,000 ML IV SCH (05:53)
[2024-07-26] MEDS ORDERED: SODIUM CHLORIDE 0.9% 1,000 ML IV SCH (06:00)
[2024-07-26] MEDS: SODIUM CHLORIDE 0.9% 500 ML 500 ML IV ONE (06:40)
[2024-07-26] MEDS: LIDOCAINE 1% (10MG/ML) FOR IV START INTRADERMA ONE (06:40)
[2024-07-26 06:55] LABS: Glucose,Whole Blood 86 mg/dL (70-110)
[2024-07-26 06:58] VITALS: TEMP 97.1
[2024-07-26] MEDS ORDERED: PROPOFOL 10 MG/ML 20 ML VIAL IV ONE (07:15)
[2024-07-26] MEDS ORDERED: LIDOCAINE 1% INJ 10MG/ML (20 ML MDV) ONE (07:15)
[2024-07-26 07:22] LABS: African American GFR (CKD) 88 (>60 ml/min/1.73 sqM); Anion Gap 8 mmol/L; Blood Urea Nitrogen 19 mg/dL (7-17); Calcium 9.7 mg/dL (8.4-10.2); Carbon Dioxide 29 mmol/L (22-30); Chloride 100 mmol/L (98-107); Glucose 104 mg/dL (74-99); Non-African American GFR(CKD) 77 (>60 ml/min/1.73 sqM); Potassium 4.5 mmol/L (3.5-5.1); Sodium 137 mmol/L (137-145)
--- NOTE | 2024-07-26 07:37 | P.PCN ---
Description of Procedure: Procedure performed: Synchronized cardioversion Moderate conscious sedation: Moderate conscious sedation was supplied by anesthesia, see separate report. Complications: none Indications: Afib PROCEDURE: After the risks, benefits and alternatives of the above mentioned procedure was explained in detail with the patient, informed consent was obtained. Patient was brought to the lab in a fasting state. Patient was given sedation by anesthesia, see separate report. Patient had been taking her anticoagulation without fail and therefore patient underwent synchronized cardioversion x 3 with 200J with resultant sinus rhythm. Patient tolerated the procedure well. Patient was transferred to the post procedure area in stable a nd satisfactory condition.
[2024-07-26 08:30] VITALS: RESP 18
[2024-07-26 09:11] VITALS: BP 120/66; PULSE 66
== END 2024-07-26 09:28 ==
LOC: OR 05:34
PROVIDERS: ATTEND Internal Medicine
DX: I48.0 Paroxysmal atrial fibrillation (principal); I10 Essential (primary) hypertension; E78.5 Hyperlipidemia, unspecified; E66.9 Obesity, unspecified; I11.0 Hypertensive heart disease with heart failure; I50.32 Chronic diastolic (congestive) heart failure; Z79.01 Long term (current) use of anticoagulants; Z79.899 Other long term (current) drug therapy; Z88.1 Allergy status to other antibiotic agents
CPT/HCPCS: 92960; 80048; J2003; J2704

== ENCOUNTER → 2024-08-20 | Outpatient (CLI) | payer MEDICARE ==
--- NOTE | 2024-08-20 15:32 | CT ---
INDICATION: Patient age:Female; 73 years old; Reason for study: J84.9; [facility]. COMPARISON: CT chest 06/17/2019, chest radiograph 08/13/2024 TECHNIQUE: Multiple thin axial images were obtained through the chest at selected intervals. Prone and supine in spiratory along with supine expiratory images were submitted for review. Please note that due to inte rval acquisition images as defined by high-resolution CT protocol the entire lung parenchyma is not e valuated, therefore small nodular densities may not be visualized. Evaluation of vascular structures , viscera and lymphatics is limited due to lack of intravenous contrast administration. One or more C T dose reduction strategies were utilized during this examination. Total DLP 1741.10 mGycm. FINDINGS: LUNGS: No significant groundglass opacity, honeycombing or architectural distortion in the lungs. No bronchiectasis. There are scattered regions of subpleural reticulation throughout. Stable superior se gment right lower lobe stable calcified pulmonary nodule with benign characteristics. Additional few scattered punctate callus or granulomas. Linear scarring along the posterior right upper lobe. Scatte red regions of air trapping identified on expiratory imaging. LARGE AIRWAYS: Central airways are patent. No dynamic airway collapse on expiratory imaging. PLEURA: No pleural effusion or thickening. HEART AND PERICARDIUM: The heart is mildly enlarged. There is no pericardial effusion. Mild coronary artery calcifications present. Thickening and calcification of aortic valve present. MEDIASTINUM AND NOLA: Stable mildly enlarged 1.3 cm short axis subcarinal lymph node. VESSELS: Mild atherosclerotic changes of the thoracic aorta. CHEST WALL AND DIAPHRAGM: Normal. LOWER NECK: Normal. UPPER ABDOMEN: Small hiatal hernia. MUSCULOSKELETAL: No acute fracture. IMPRESSION: 1. Scattered regions of subpleural reticulation which may represent developing early pulmonary fibro tic changes. No honeycombing. 2. Stable subcarinal 1.3 cm lymph node dating back to 2019 considered benign. [facility], , 08/20/2024 3:30 PM
== END | disposition home or self-care (01) ==
LOC: RADCTMAIN 10:00
PROVIDERS: ATTEND Internal Medicine
DX: J84.9 Interstitial pulmonary disease, unspecified (principal); R91.1 Solitary pulmonary nodule; R59.0 Localized enlarged lymph nodes
CPT/HCPCS: 71250

== ENCOUNTER → 2024-08-27 | Outpatient (CLI) | payer MEDICARE ==
--- NOTE | 2024-08-30 08:06 | MM ---
Reason for Exam: Screening (asymptomatic). Last mammogram was performed 1 year(s) and 2 month(s) ago. Patient History: Menarche at age 15. First Full-Term at age 26. Left ovary removed at age 56. Right ovary removed at age 56. Hysterectomy at age 56. Postmenopausal. Mother had breast cancer, age 60. Risk Values: Jeni 5 year model risk: 3.1%. NCI Lifetime model risk: 8.1%. Prior Study Comparison: 11/18/2013 Screening Mammogram, [facility]. 05/07/2016 Bilateral Screening Mammogram, [facility]. 01/08/2019 Bilateral Screening Mammogram, [facility]. 07/19/2022 Bilateral Screening Mammogram, [facility]. 07/21/2023 Bilateral Screening Mammogram, [facility]. Tissue Density: The breasts are almost entirely fatty. Findings: Analyzed By CAD. Right breast: There is no suspicious group of microcalcifications or new suspicious mass. Left breast: There is no suspicious group of microcalcifications or new suspicious mass. Overall Assessment: Negative, BI-RAD 1 Management: Screening Mammogram of both breasts in [address] [facility] will attempt to contact patient to return for supplemental views and ultrasound if indicated. Patient should continue monthly self-breast exams. A clinical breast exam by your physician is recommended on an annual basis. This exam should not preclude additional follow-up of suspicious palpable abnormalities. Note on Jeni scores and lifetime risk: 1. A Jeni score greater than 3% is considered moderate risk. If this is the case, consider specialist referral to assess eligibility for a risk reducing agent. 2. If overall lifetime risk for the development of breast cancer is 20% or higher, the patient may qualify for future screening with alternating mammogram and breast MRI. [facility], , 08/30/2024 8:03 AM. Electronically signed and approved by: Enrique Alcazar DO
== END | disposition home or self-care (01) ==
LOC: RADMAMWWP 13:28
PROVIDERS: ATTEND Family Medicine
DX: Z12.31 Encounter for screening mammogram for malignant neoplasm of breast (principal); R92.313 Mammographic fatty tissue density, bilateral breasts; Z78.0 Asymptomatic menopausal state; Z80.3 Family history of malignant neoplasm of breast
CPT/HCPCS: 77063; 77067

== ENCOUNTER → 2024-11-26 | Outpatient (CLI) | payer MEDICARE ==
[2024-11-26 18:17] LABS: HCT 41.6 % (37.2-46.3); HGB 13.3 g/dL (12.0-15.0); MCH 28.3 pg (27.0-32.0); MCHC 32.0 g/dL (32.0-37.0); MCV 88.5 FL (80.0-97.0); NRBC Per 100 WBC 0 X 10*3/uL (0.00-0.01); Platelet Count 266 X 10*3/uL (140-440); RBC 4.70 X 10*6/uL (4.10-5.20); RDW 13.7 % (11.5-14.5); WBC 7.93 X 10*3/uL (4.50-10.00)
[2024-11-26 18:23] LABS: Anion Gap 13.90 mmol/L (4.00-12.00); Blood Urea Nitrogen 20.4 mg/dL (9.0-27.0); Carbon Dioxide 25.1 mmol/L (21.6-31.8); Chloride 101 mmol/L (96-109); Potassium 3.9 mmol/L (3.5-5.5); Sodium 140 mmol/L (135-145)
== END | disposition home or self-care (01) ==
LOC: LABPAT 13:03
PROVIDERS: ATTEND Internal Medicine Clinical Cardiac Electrophysiology
DX: Z01.812 Encounter for preprocedural laboratory examination (principal); I48.0 Paroxysmal atrial fibrillation
CPT/HCPCS: 80051; 82565; 84520; 85027